=== PATIENT | female | born 1950 | race Caucasian/White ===

== ENCOUNTER → 2018-04-17 08:16 | Outpatient (CLI) | payer MEDICARE, OTHER, SELFPAY ==
[2018-04-17 08:25] LABS: Mucous, Urine 0 SEEN /hpf (<or=2+); Red Blood Cells-Urine 0 SEEN /hpf (0-5)
[2018-04-17 10:27] LABS: Absolute Lymphocyte Count 1.97 X10^3/ul (0.83-4.51); Basophil# 0.02 X10^3/uL; Basophil% 0.4 % (0-1); Eosinophil# 0.11 X10^3/uL; Eosinophils% 2.4 % (0-5); Hematocrit 40.9 % (37-47); Hemoglobin 14.3 g/dl (12.0-15.0); Lymphocyte # 1.97 X10^3/ul (4.0); Lymphocyte % 43.7 % (19-41); Mean Corpuscular Hgb 31.8 pg (27.0-32.0); Mean Corpuscular Volume 91.1 fL (81-99); Mean Platelet Vol. 11.3 fl (6.2-12.0); Monocyte# 0.38 X10^3/uL; Monocyte% 8.4 % (0-10); Neutrophil # 2.02 X10^3/uL (2.7-7.7); Neutrophil % 44.9 % (47-70); Platelet Count 269 K/mm3 (150-450); RBC Distribution Width CV 12.8 % (11.6-14.6); RBC Distribution Width SD 41.8 fl (35.1-43.9); Red Blood Count 4.49 M/mm3 (4.2-5.4); White Blood Count 4.5 K/mm3 (4.4-11.0)
[2018-04-17 10:28] LABS: Color, Urine Yellow (Yellow); Glucose, Dipstick Normal (Normal); Ketone-Dipstick Negative (Negative); Leukocyte Esterase-Dipstick Negative /ul (Negative); Nitrite-Dipstick Negative (Negative); Occult Blood-Urine 25 /ul (Negative); POSITIVE COUNT NO; POSITIVE DIFFERENTIAL NO; Protein-Dipstick Negative (Negative); Urine Bilirubin Dipstick Negative (Negative); Urine Clarity Clear (Clear); Urine Urobilinogen Normal (Normal)
[2018-04-17 10:29] LABS: POSITIVE MORPHOLOGY NO
[2018-04-17 10:37] LABS: Bacteria 3+ /hpf (None Seen); Squamous Epithelial Cells - UA 10-25 SEEN /hpf (5-10); White Blood Cells 10-25 SEEN /hpf (0-5)
[2018-04-17 10:44] LABS: ALB/GLOB Ratio 0.9 RATIO (0.9-2.4); AST(SGOT) 25 U/L (15-37); Alanine Aminotransfer ALT/SGPT 46 U/L (13-56); Albumin, Serum 3.7 g/dL (3.2-5.0); Alkaline Phosphatase 80 U/L (45-117); Anion Gap 12 (5-15); BUN 11 mg/dL (7-18); BUN/Creat Ratio 12.6 RATIO (10-20); Calcium,Total 8.4 mg/dL (8.5-10.1); Chloride 108 mmol/L (98-107); Cholesterol 266 mg/dL (200); Creatinine, Serum 0.87 mg/dL (0.55-1.02); EST Glomerular Filtration Rate 68 mL/min (>60); Est Glom Filt Rate - Afr Amer 83 mL/min (>60); Globulin 3.9 g/dL (2.2-4.2); Glucose 87 mg/dL (74-106); High Density Lipoprotein 43 mg/dL; Phosphorus 2.7 mg/dL (2.5-4.9); Potassium 3.7 mmol/L (3.5-5.1); Protein, Total 7.6 g/dL (6.4-8.2); Sodium Level 140 mmol/L (136-145); T4 Free Direct 0.98 ng/dL (0.76-1.46); Thyroid Stim Hormone (TSH) 1.88 uIU/mL (0.358-3.74); Triglycerides 269 mg/dL; Very Low Density Lipoprotein 54 mg/dL (5-40)
== END ==
PROVIDERS: Family Provider Family Medicine; PCP Family Medicine; Visit Provider Family Medicine
DX: E78.5 Hyperlipidemia, unspecified (principal); E55.9 Vitamin D deficiency, unspecified; M81.0 Age-related osteoporosis without current pathological fracture; R94.4 Abnormal results of kidney function studies; E01.0 Iodine-deficiency related diffuse (endemic) goiter
CPT/HCPCS: 36415; 80053; 80061; 81001; 82306; 84100; 84439; 84443; 85025

== ENCOUNTER → 2018-04-30 08:47 | Outpatient (CLI) | payer MEDICARE, OTHER, SELFPAY ==
--- NOTE | 2018-04-30 08:53 | US_ITS ---
STUDY: THYROID ULTRASOUND REASON FOR EXAM: Female, 67 years old. Thyromegaly TECHNIQUE: Ultrasound evaluation of the thyroid was performed with real-time and static wright-scale imaging. COMPARISON: None. FINDINGS: RIGHT LOBE: The right lobe of the thyroid gland measures 3.8 x 1.3 x 1.1 cm. There is a homogeneous echotexture. There are no demonstrated solid, cystic or complex lesions. LEFT LOBE: The left lobe of the thyroid gland measures 3.7 x 1.1 x 1.0 cm. There is a homogeneous echotexture. There are no demonstrated solid or complex lesions. There is a 2 mm mid upper left thyroid lobe cyst. ISTHMUS: The isthmus measures 2 mm . A normal size left lymph node identified measuring up to 6 mm in size. US/Thyroid IMPRESSION: No thyroid gland enlargement. Small 2 mm thyroid cyst left lobe. Electronically Signed: Duc Carrillo DO at 22:36 EDT , Service support ,
== END ==
PROVIDERS: Family Provider Family Medicine; PCP Family Medicine; Visit Provider Family Medicine
DX: M81.0 Age-related osteoporosis without current pathological fracture (principal); E01.0 Iodine-deficiency related diffuse (endemic) goiter
CPT/HCPCS: 76536; 77080

== ENCOUNTER → 2018-07-22 07:03 | Outpatient (CLI) | payer MEDICARE, OTHER, SELFPAY ==
[2018-07-22 10:35] LABS: Vitamin D,25 Hydroxy 59.4 ng/mL (29.95-100.01)
[2018-07-22 10:36] LABS: ALB/GLOB Ratio 0.9 RATIO (0.9-2.4); AST(SGOT) 17 U/L (15-37); Alanine Aminotransfer ALT/SGPT 43 U/L (13-56); Albumin, Serum 3.7 g/dL (3.2-5.0); Alkaline Phosphatase 88 U/L (45-117); Anion Gap 10 (5-15); BUN 13 mg/dL (7-18); BUN/Creat Ratio 12.5 RATIO (10-20); Calcium,Total 8.8 mg/dL (8.5-10.1); Chloride 105 mmol/L (98-107); Cholesterol 302 mg/dL (200); Creatinine, Serum 1.04 mg/dL (0.55-1.02); EST Glomerular Filtration Rate 56 mL/min (>60); Est Glom Filt Rate - Afr Amer 67 mL/min (>60); Glucose 105 mg/dL (74-106); High Density Lipoprotein 46 mg/dL; Protein, Total 7.7 g/dL (6.4-8.2); Sodium Level 140 mmol/L (136-145); Triglycerides 244 mg/dL; Very Low Density Lipoprotein 49 mg/dL (5-40)
== END ==
PROVIDERS: Family Provider Family Medicine; PCP Family Medicine; Referring Provider Family Medicine; Visit Provider Family Medicine
DX: E78.5 Hyperlipidemia, unspecified (principal); E55.9 Vitamin D deficiency, unspecified
CPT/HCPCS: 36415; 80053; 80061; 82306

== ENCOUNTER → 2020-03-02 12:48 | Outpatient (CLI) | payer MEDICARE, OTHER, SELFPAY ==
[2020-03-03 07:23] LABS: SARS-COV-2 TOTAL ABS Nonreactive (Nonreactive)
== END ==
PROVIDERS: PCP Family Medicine; Referring Provider Family Medicine; Visit Provider Family Medicine
DX: Z20.828 Contact with and (suspected) exposure to other viral communicable diseases (principal)
CPT/HCPCS: 86769; G2023

== ENCOUNTER 2023-09-11 12:30 | Outpatient (RCR) | payer MEDICARE, OTHER, SELFPAY ==
--- NOTE | 2023-07-08 12:53 | HP.PTEVAL_ITS ---
Patient's Visit Information Visit Information Visit Information: JUSTINA PARR is a 72 year old F referred to Physical Therapy by Dr. Ludwin Sebastian DO with a diagnosis of imbalance. Date of Evaluation: 07/08/23 Physical Therapist: Ameya Pride, DENISET, OCS, CSCS Visit Plan Frequency: 2x /Week Duration: 4-6 Weeks Plan: 2x/week for 4-6 weeks for... 1,. ensure stretching gastroc at home(given to her at ) 2. teach weight shifting, VOR balance and LE strength program to do at home or in gym and work to safety and I. Subjective Subjective: Balance issues. Has fallen about a month ago and worked with sales trainer. Went home and fell going in front door. She can spin or feel lightheaded for a short time. This may have started about a year ago. Has had eye appointments and changed glasses. No spinning with lying but gets it standing from bending. driving is fine. 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 Sleep is OK Not employed. Spends day chasing aiyana. No regular exercise. Fearful of walking too much. Gets wooshing feeling after being up for two hours. Better after nap. Objective Objective: Walks into and out of PT I without obvious gait deficits, slow and lacks weight shift. Trasnfers without UE I. Steps reciprocally with one rail. coordination LE tapping WNL reciprocally. LE sensation WNL to gross light touch. reflexes 2/3 patella and achilles Strength hips 4-, knees 4, ankles 4/5. - B hallpike yuliana , - roll test. Oculomotor: no nystagmus with gaze or head shake - skew eye deviation - ocular tilt - head thrust pursuit and saccades are normal and asymptomatic MSQ is asymptomatic today VOr is normal albeit slow and harder to balance in standing but asymptomatic. weight shifting FW and lateral is hesitant. Balance/Special Test Scores Functional Gait Assessment Score: 23 % Disability: 23.3400 CATSIB Score (Max score 120 seconds): 100 Lower Extremity Functional Score: 29 Goals Goal 1:: FGA Goal Time Frame: 4-6 Weeks Goal 2:: Pt feel balance and activity 50% imrpoved Goal Time Frame: 4-6 Weeks Goal 3:: romberg foam ec 20+ seconds. Goal Time Frame: 4-6 Weeks Goal 4:: I appropriate HEP to limit future problems(weight shifts, gastrco stretch, LE strength, vestibular ex) Rehabilitation Potential Physical Therapy Diagnosis: balance deficits limiting home function due to fear and safety Rehabilitation Potential: Good Anticipated Interventions Patient/Client Instruction: Educate patient on: Condition and Plan of Care For the Purpose of:: To improve muscle performance and motor function, To increase tolerance to activity/condition/position and To improve gait and locomotor functions Therapeutic Exercise to Include: Strength training, Balance training and Flexibilty training For the Purpose of:: To increase tolerance to activity/condition/position and To improve ability of physical actions for home/community/work/leisure Text: Thank you for the opportunity to evaluate your patient. For Medicare and Medicare HMO plans, please review the plan of care and approve it. It will need to be FAXED BACK to us at [phone] for Medicare purposes. For Medicare only, by signing this I certify the plan of care. Please let me know if there are questions or concerns regarding this plan of care. Physician Signature: Date:
--- NOTE | 2023-08-28 13:47 | HP.PTREVAL_ITS ---
Re-Evaluation Intro: Dr. Ludwin Sebastian, DO, It has been my pleasure to treat JUSTINA PARR over the last 14 visits for imbalance. Please see the progress note below for an update on the physical therapy plan of care! Subjective Subjective: Feels like she is getting to the point where a few more visits and she can be on her own. No pain. Balance is pretty good. No falls. No f/u scheduled. Activities are nomral at home. Objective Objective/Function: Walking I and transferring I on her own without difficulty. Good balance. feels like she does not quite ready to be on her won adn would like a couple more to wean to I. Still working toward last goal of complete I with gym, good prognosis Plan Plan Plan: 1x/week x 2-4 as needed to wean to I with gym program and answer questions, she will work out another time a week on her own and shoot for 2- 3x/week snf after d/c. D/c will occur when she is ready and I in the next 2-4 weeks. Balance/Gait/Functional tests Balance/Special Test Scores Functional Gait Assessment Score: 28 % Disability: 6.6700 CATSIB Score (Max score 120 seconds): 120 Lower Extremity Functional Score: 57 Goals Goals Goal 1:: FGA 26/30 Goal Time Frame: 4-6 Weeks Goal Progress: Goal Met Goal 2:: Pt feel balance and activity 50% imrpoved Goal Time Frame: 4-6 Weeks Goal Progress: Goal Met Goal 3:: romberg foam ec 20+ seconds. Goal Time Frame: 4-6 Weeks Goal Progress: Goal Met Goal 4:: I appropriate HEP to limit future problems(weight shifts, gastrco stretch, LE strength, vestibular ex) Goal Time Frame: 2-4 Weeks Goal Progress: still appropr Anticipated Interventions Anticipated Interventions Patient/Client Instruction: Educate patient on: Condition and Plan of Care For the Purpose of:: To improve muscle performance and motor function, To increase tolerance to activity/condition/position and To improve gait and locomotor functions Therapeutic Exercise to Include: Strength training, Balance training and Flexibilty training For the Purpose of:: To increase tolerance to activity/condition/position and To improve ability of physical actions for home/community/work/leisure Re-Evaluation Ending Re-evaluation ending: Please do not hesitate to contact me at [phone] by phone or if you have questions or concerns regarding this new plan of care! Sincerely, Ameya Pride, DPT, OCS, CSCS
--- NOTE | 2023-11-01 14:17 | HP.PTDCSUM ---
Discharge Summary D/C summary: It has been my pleasure to treat JUSTINA PARR referred by Dr. Ludwin Sebastian DO, with the diagnosis of imbalance for a total of 16 visit(s). Discharge Date: Please see the following information for a summary of their discharge status. Subjective Subjective: today is my last appt Overall Improvement % Improvement: 90 Objective Objective/Function: Went through ther ex log one final time with pt - having her set up equip weight and settings. Did well. Some min cues but should become more familiar as she continues. Cont to voice using 2 hands to adjust equip settings. Goals Goal 1:: FGA Goal Progress: Goal Met Goal 2:: Pt feel balance and activity 50% imrpoved Goal Progress: Goal Met Goal 3:: romberg foam ec 20+ seconds. Goal Progress: Goal Met Goal 4:: I appropriate HEP to limit future problems(weight shifts, gastrco stretch, LE strength, vestibular ex) Goal Progress: still appropr Plan Plan: Pt is D/c from PT at this time to her Indep[employer] program. D/C Information d/c sentence: If there are questions or concerns regarding this patient's physical therapy, please feel free to call me at [phone]. Thank you for the referral of this patient. Sincerely, Ameya Pride, DPT, OCS, CSCS Balance/Gait/Functional tests Balance/Special Test Scores Functional Gait Assessment Score: 28 % Disability: 6.6700 CATSIB Score (Max score 120 seconds): 120 Lower Extremity Functional Score: 57 Improvement % Improvement: 90
== END 2023-09-11 19:00 | disposition home or self-care (01) ==
LOC: PT 12:30
PROVIDERS: PCP Family Medicine; Referring Provider Family Medicine; Visit Provider Family Medicine
DX: R26.89 Other abnormalities of gait and mobility (principal)
CPT/HCPCS: 97110; 97162; 97164; 97530

== ENCOUNTER 2024-11-14 12:36 | Emergency (ER) | payer MEDICARE, SELFPAY ==
[2024-11-14 12:38] VITALS: BP 144/68; PULSE 85; RESP 18; TEMP 36.4; O2SAT 99; BMI 26.9
--- NOTE | 2024-11-14 12:53 | CT_ITS ---
PROCEDURE: SPINE CERVICAL WITHOUT CONTRAS REASON FOR EXAM: Falls TECHNIQUE: Cervical spine CT without contrast. COMPARISON: None. FINDINGS: Alignment: Mild straightening of the normal cervical lordosis Vertebrae: Compression deformities of the superior endplates of C7 and T1. Mild spondylosis. No spondylolisthesis. Soft Tissues: No large prevertebral hematoma CT/Spine Cervical without Contras IMPRESSION: Superior endplate compression deformities of C7 and T1. Mild degenerative reeves ges throughout the cervical spine One or more dose reduction techniques were used (e.g., Automated exposure contr ol, adjustment of the mA and/or kV according to patient size, use of iterative reconstruction technique). Reading Location: [facility]
--- NOTE | 2024-11-14 12:53 | CT_ITS ---
EXAM: BRAIN/HEAD WITHOUT CONTRAST CLINICAL HISTORY: Falls COMPARISON: None. TECHNIQUE: Noncontrast images of the head with multiplanar reconstructions. Dose reduction techniques were used including intermediate exposure control (AEC),iterative reconstruction technique, and/or mA and/or KV dose adjustments based on patient's size. FINDINGS: CT HEAD FINDINGS: No acute intracranial hemorrhage, mass, mass effect, midline shift or pathologic extra-axial fluid collection. Nonspecific periventricular white matter changes are noted No hydrocephalus. Age- appropriate cerebral volume and white matter. Visualized paranasal sinuses and mastoid air cells are clear. The calvarium is grossly intact. CT/Brain/Head without Contrast IMPRESSION: 1. No CT evidence of acute intracranial pathology. 2. Age-appropriate volume loss and remote small vessel ischemic changes Reading Location: [facility]
--- NOTE | 2024-11-14 12:53 | EKG12_ITS ---
Test Reason : FALL Blood Pressure : */* mmHG Vent. Rate : 91 BPM Atrial Rate : 91 BPM P-R Int : 162 ms QRS Dur : 64 ms QT Int : 372 ms P-R-T Axes : * 79 84 degrees QTcB Int : 457 ms Normal sinus rhythm BASELINE ARTIFACT PROBABLY NORMAL Confirmed by Adam Tran ([id number]), medical editor JEMMA ROBERTO ([id number]) on 11/16/2024 10:14:44 AM Referred By: Confirmed By: Adam Tran
--- NOTE | 2024-11-14 13:00 | EDS_ITS ---
HPI <SKIP Auguste - Last Filed: 11/14/24 15:30> HPI - Fall History of Present Illness Chief Complaint: Fall Narrative Narrative: 74-year-old female with no known past medical history states she is been following every couple days for the last 3 weeks. She stood up from her living room chair 3 days ago and fell hitting her head on the ground and has an abrasion around her left eye. She does not think there was loss of conscious ness. She has had headaches since then without vomiting or visual changes or focal motor or sensory changes. She really was not worried about it but she told her friend on the telephone that she been falling and they called the paramedics today. Patient does admit to having a drink before bed to help her sleep. PFSH <SKPI Auguste - Last Filed: 11/14/24 15:30> PFSH Medical History (Updated 11/14/24 @ 14:40 by SKIP Auguste) Osteopenia IBS (irritable bowel syndrome) Cataracts, bilateral Bone fracture Home Medications ?Medication ?Instructions ?Recorded ?Last Taken ?Type NK 11/14/24 Unknown History Allergy/AdvReac Type Severity Reaction Status Date / Time rosuvastatin calcium (From AdvReac Other Verified 11/14/24 12:38 Crestor) Family History (Updated 09/24/19 @ 16:18 by Elise Potter) Father Colon cancer Myocardial infarction Melanoma Mother Cancer Surgical History History of tubal ligation Social History (Updated 09/24/19 @ 16:19 by Elise Potter) Smoking Status: Never smoker alcohol intake: current alcohol intake frequency: a few times a week substance use type: does not use frequency: 1-2 times per week ROS <SKIP Auguste - Last Filed: 11/14/24 15:30> ROS ED ROS Narrative Constitutional: Negative for fever, chills, malaise. Eyes: Negative for visual change. CVS: Negative for chest pain, syncope. Respiratory: Negative for shortness of breath. GI: Negative for abdominal pain, nausea, vomiting. Neuro: Positive for headache EXAM <SKIP Auguste - Last Filed: 11/14/24 15:30> Physical Exam Narrative Exam Narrative: CONST: Patient sitting in no acute distress. EYES: Normal inspection. PERRL, EOMI. ENT: Small abrasion left periorbital region, no raccoon eyes or zhang sign, no hemotympanum, no nasal septal hematoma, no CSF otorrhea or rhinorrhea. NECK: Normal inspection. No midline spinal tenderness, no step off or crepitus. RESP: No respiratory distress, CTAB. Chest wall nontender CVS: Regular rate and rhythm, no murmur, no gallop. ABD: Soft and nontender, no guarding or rebound, nondistended. SKIN: Color normal, no rash, warm, dry, intact. EXTREMITIES: Normal appearance, no bony tenderness, 2+ radial and DP pulses. NEURO: Alert and answering questions appropriately. PSYCH: Normal affect. Const Vital Signs: 11/14/24 12:38 11/14/24 12:45 Temperature 97.6 F L Temperature Source Oral Pulse Rate 85 Respiratory Rate 18 Respiratory Effort Normal Non-Labored Respiratory Depth Normal Respiratory Pattern Normal Blood Pressure 144/68 H Blood Pressure Mean 93 Pulse Ox 99 Oxygen Delivery Method Room Air Room Air <Valente Anne MD - Last Filed: 11/14/24 15:53> Physical Exam Const Vital Signs: 11/14/24 12:38 11/14/24 12:45 Temperature 97.6 F L Temperature Source Oral Pulse Rate 85 Respiratory Rate 18 Respiratory Effort Normal Non-Labored Respiratory Depth Normal Respiratory Pattern Normal Blood Pressure 144/68 H Blood Pressure Mean 93 Pulse Ox 99 Oxygen Delivery Method Room Air Room Air [facility] <SKIP Auguste - Last Filed: 11/14/24 15:30> [facility] Narrative Medical decision making narrative: Patient reports recent multiple falls. She fell 3 days ago and has a small left facial abrasion and her friend called EMS. Patient is awake and alert in no distress. Vital signs are stable. There is a small abrasion to the left of her eye with no bony tenderness or signs of basilar skull fracture. There is no cervical tenderness. She is neurovascularly intact and her exam is otherwise negative for injuries. I recommended screening to rule out any medical cause of her falls and she is agreeable. CBC and BMP are only notable for mild hypokalemia of 3.2. She was given p.o. potassium. Urinalysis is negative. CT brain negative; CT cervical spine shows superior endplate compression deformities of C7 and T1. She has no neck pain and I suspect these are chronic. Patient ambulated to the bathroom with the nurse who states she was somewhat off balance and holding onto the wall. I advised the patient to be admitted but she refused. She is alert and oriented and not clinically intoxicated and is capable of making this decision. I discussed this is AGAINST MEDICAL ADVICE that she could have fallen had permanent injury or disability or . Patient expressed understanding. I recommended she follow-up with her primary care doctor and she was discharged in stable condition. Lab Data Attestation: I reviewed the patient's lab results. Labs: Laboratory Results - last 24 hr 11/14/24 11/14/24 13:00 13:55 WBC 4.8 RBC 4.28 Hgb 14.7 Hct 42.2 MCV 98.6 MCH 34.3 H MCHC 34.8 RDW Std Deviation 46.2 H RDW Coeff of Brigitte 12.9 Plt Count 200 MPV 10.8 Immature Gran % (Auto) 0.400 Neut % (Auto) 46.9 L Lymph % (Auto) 42.3 H [place] % (Auto) 8.5 Eos % (Auto) 1.3 Baso % (Auto) 0.6 Absolute Neuts (auto) 2.3 Absolute Lymphs (auto) 2.03 Nucleated RBC % 0 Sodium 140 Potassium 3.2 L Chloride 104 Carbon Dioxide 21.0 Anion Gap 14 BUN 14 Creatinine 0.84 Estim Creat Clear Calc 51.07 Est GFR (MDRD) Af Amer 85 Est GFR (MDRD) Non-Af 70 BUN/Creatinine Ratio 16.7 Glucose 88 Calcium 9.1 Urine Color Yellow Urine Clarity Clear Urine pH 6.0 Ur Specific [place] 1.010 Urine Protein 15 H Urine Glucose (UA) Normal Urine Ketones 50 H Urine Occult Blood 10 H Urine Nitrite Negative Urine Bilirubin Negative Urine Urobilinogen Normal Ur Leukocyte Esterase Negative Urine RBC 0-5 SEEN Urine WBC 0-5 SEEN Ur Squamous Epith Cells 0-5 SEEN Urine Bacteria 0 SEEN Urine Mucus 0 SEEN Radiography Diagnostic Testing: Clinical Impression(s) from Imaging Studies Brain CT 11/14/24 12:53 IMPRESSION: 1. No CT evidence of acute intracranial pathology. 2. Age-appropriate volume loss and remote small vessel ischemic changes Reading Location: [facility] Cervical Spine CT 11/14/24 12:53 IMPRESSION: Superior endplate compression deformities of C7 and T1. Mild degenerative changes throughout the cervical spine One or more dose reduction techniques were used (e.g., Automated exposure control, adjustment of the mA and/or kV according to patient size, use of iterative reconstruction technique). Reading Location: [facility] EKG Initial EKG: Attestation: I personally reviewed and interpreted this EKG as follows: Interpretation: Sinus Rhythm and No Acute Injury Pattern Comments: Normal sinus rhythm at [address] changes, no STEMI <Valente Anne MD - Last Filed: 11/14/24 15:53> [facility] Lab Data Labs: Laboratory Results - last 24 hr 11/14/24 11/14/24 13:00 13:55 WBC 4.8 RBC 4.28 Hgb 14.7 Hct 42.2 MCV 98.6 MCH 34.3 H MCHC 34.8 RDW Std Deviation 46.2 H RDW Coeff of Brigitte 12.9 Plt Count 200 MPV 10.8 Immature Gran % (Auto) 0.400 Neut % (Auto) 46.9 L Lymph % (Auto) 42.3 H [place] % (Auto) 8.5 Eos % (Auto) 1.3 Baso % (Auto) 0.6 Absolute Neuts (auto) 2.3 Absolute Lymphs (auto) 2.03 Nucleated RBC % 0 Sodium 140 Potassium 3.2 L Chloride 104 Carbon Dioxide 21.0 Anion Gap 14 BUN 14 Creatinine 0.84 Estim Creat Clear Calc 51.07 Est GFR (MDRD) Af Amer 85 Est GFR (MDRD) Non-Af 70 BUN/Creatinine Ratio 16.7 Glucose 88 Calcium 9.1 Urine Color Yellow Urine Clarity Clear Urine pH 6.0 Ur Specific [place] 1.010 Urine Protein 15 H Urine Glucose (UA) Normal Urine Ketones 50 H Urine Occult Blood 10 H Urine Nitrite Negative Urine Bilirubin Negative Urine Urobilinogen Normal Ur Leukocyte Esterase Negative Urine RBC 0-5 SEEN Urine WBC 0-5 SEEN Ur Squamous Epith Cells 0-5 SEEN Urine Bacteria 0 SEEN Urine Mucus 0 SEEN Radiography Diagnostic Testing: Clinical Impression(s) from Imaging Studies Brain CT 11/14/24 12:53 IMPRESSION: 1. No CT evidence of acute intracranial pathology. 2. Age-appropriate volume loss and remote small vessel ischemic changes Reading Location: [facility] Cervical Spine CT 11/14/24 12:53 IMPRESSION: Superior endplate compression deformities of C7 and T1. Mild degenerative changes throughout the cervical spine One or more dose reduction techniques were used (e.g., Automated exposure control, adjustment of the mA and/or kV according to patient size, use of iterative reconstruction technique). Reading Location: [id number] Narrative: Dr. Anne: I have personally performed a face to face assessment of the patient and have reviewed the SADA Note. I performed a substantive portion of the visit including all aspects of the following. My wu findings include: History is 74-year-old female, lives alone, presents via EMS with frequent fall s. She states that she has a cane at home which she is supposed to be using but sometimes gets up, and states that she runs around like she was 18 years old, and ends up falling. She told her neighbor that she has been falling frequently, who in turn called EMS. She Darcy few days ago and sustained an abrasion to her left face around her at the corner of her eye. She denies any neck pain, no head pain, does not take blood thinners. Exam is GCS 15. ABCs intact. Neck soft and supple without meningismus. No vertebral point tenderness or bony step-off noted. Cardiovascular examination reveals a regular rate and rhythm. Lungs clear to auscultation bilaterally. Abdomen soft and nontender without guarding or rebound. Positive bowel sounds. Neurological examination is nonfocal and nonlateralizing. Medical Decision Making: Check CT brain and CT C-spine. Although she has compression fractures of C7 and T1, she is not having pain in that area. Check EKG. Check labs. Patient was able to ambulate in the ED. Observation/admission was discussed with her but she declines. They feel she has the capacity to make this decision as she is not clinically intoxicated here. She will follow-up with her primary care provider. Return instructions to the emergency department were reviewed. Disposition is discharged home in stable condition. Other additions or changes: [None] Discharge Plan Triage Chief Complaint: Fall Other Complaint: Head Injury ED Midlevel Provider: Mariah Little ED Provider: Valente Anne Dx/Rx/DC Orders Clinical Impression: Multiple falls, Closed head injury, Abrasion of face Instructions: ED Fall with Uncertain Cause, ED Head Injury (Adult) Prescriptions: No Action NK Primary Care Provider: Ludwin Sebastian Referrals: Ludwin Sebastian, DO [Primary Care Provider] - Activity Restrictions/Additional Instructions: I recommended you be admitted to the hospital since you are unsteady and having multiple falls but you refused. Risks are that you could fall and have an injury such as a head injury causing bleeding or break bones and have permanent disability or . I recommend you follow-up with your primary care doctor. Print Language: Malaysian Disposition Disposition: Home, Self Care Discharge Date/Time: 11/14/24 15:48
[2024-11-14 13:20] LABS: Absolute Lymphocyte Count 2.03 X10^3/uL (0.83-4.51); Absolute Neutrophil Count 2.3 X10^3/uL (2.0-7.7); Basophil# 0.03 X10^3/uL; Basophil% 0.6 % (0-1); Eosinophil# 0.06 X10^3/uL; Eosinophils% 1.3 % (0-5); Hematocrit 42.2 % (37-47); Hemoglobin 14.7 g/dL (12.0-15.0); Lymphocyte # 2.03 X10^3/ul (0.83-4.51); Lymphocyte % 42.3 % (19-41); Mean Corp Hgb Conc 34.8 g/dL (32-36); Mean Corpuscular Hgb 34.3 pg (27.0-32.0); Mean Corpuscular Volume 98.6 fL (81-99); Mean Platelet Vol. 10.8 fl (6.2-12.0); Monocyte# 0.41 X10^3/uL; Monocyte% 8.5 % (0-10); NRBC Flagged by Analyzer 0 % (0-5); Neutrophil # 2.25 X10^3/uL (2.7-7.7); Neutrophil % 46.9 % (47-70); Platelet Count 200 K/mm3 (150-450); RBC Distribution Width CV 12.9 % (11.6-14.6); RBC Distribution Width SD 46.2 fl (35.1-43.9); Red Blood Count 4.28 M/mm3 (4.2-5.4); White Blood Count 4.8 K/mm3 (4.4-11.0)
[2024-11-14 13:30] LABS: Anion Gap 14 (5-15); BUN 14 mg/dL (7-18); BUN/Creat Ratio 16.7 RATIO (10-20); Calcium,Total 9.1 mg/dL (8.5-10.1); Chloride 104 mmol/L (98-107); Creatinine, Serum 0.84 mg/dL (0.55-1.02); EST Glomerular Filtration Rate 70 mL/min (>60); Est Glom Filt Rate - Afr Amer 85 mL/min (>60); Estimated Creatinine Clearance 51.07 ml/min; Glucose 88 mg/dL (74-106); Potassium 3.2 mmol/L (3.5-5.1); Sodium Level 140 mmol/L (136-145)
[2024-11-14] MEDS: Potassium Chloride Oral Tablet 20 MEQ 40 MEQ PO (13:52)
[2024-11-14 14:03] LABS: Bacteria 0 SEEN /hpf (None Seen); Mucous, Urine 0 SEEN /hpf (<or=2+)
[2024-11-14 14:06] LABS: Color, Urine Yellow (Yellow); Glucose, Dipstick Normal (Normal); Ketone-Dipstick 50 mg/dl (Negative); Leukocyte Esterase-Dipstick Negative /ul (Negative); Nitrite-Dipstick Negative (Negative); Occult Blood-Urine 10 /ul (Negative); Protein-Dipstick 15 mg/dl (Negative); Urine Bilirubin Dipstick Negative (Negative); Urine Clarity Clear (Clear); Urine Urobilinogen Normal (Normal)
[2024-11-14 14:31] LABS: Red Blood Cells-Urine 0-5 SEEN /hpf (0-5); Squamous Epithelial Cells - UA 0-5 SEEN /hpf (5-10); White Blood Cells 0-5 SEEN /hpf (0-5)
--- NOTE | 2024-11-14 15:10 | CM.ED ---
Social Work: Date of referral: 11/14/2024 Reason for referral: Resources/Support/Discharge Planning Referred by: Social Work Identification perinatal social worker met with patient due to concerns of recent increase of falls, and possible substance abuse. Patient provided consent for social work visit. Patient reported she has been getting migraine headaches lately which patient described as new and unusual and has been taking OTC meds to treat. Patient reported she has increased falls with the headaches. When asked of patient has discussed this with her PCP (Dr. Ludwin Sebastian), patient admitted that she has not. perinatal social worker encouraged patient to reach out to her doctor to discuss which patient stated she would do. Patient reported she's not interested in getting a lot of tests done. Patient has a standard cane she ambulates with at times when home. Patient stated she gets dizzy at times when standing and/or walking. perinatal social worker provided fall prevention education, encouraged patient to talk to her doctor about getting a script from her PCP for a rollator so patient can have something more sturdy to hold onto when ambulating and also something she can use to sit down when needed if feeling unsteady. Patient was wearing an ERS device that she got through [facility] that she has had for years and uses. perinatal social worker talked with patient about reaching out to provider to see if she can get one with a fall detection sensor and also to get a lock box on door in case EMS is ever dispatched and patient has experienced LOC so door isn't broken down. Patient stated she will ask about this. perinatal social worker asked patient about her drinking and patient stated she wasn't sure if she drank this morning or not. Patient stated she drinks 3-4 days a week and just has one alcoholic drink at night before bedtime. Patient denied drinking more than stated and denied any issues with substance abuse. perinatal social worker provided education about consuming alcoholic beverages and increased fall risk which patient verbalized she understood. Patient reported she has a strong friend group/support system. Patient admitted that she is not making the best choices for herself however also reported she has a right to decide for herself how she wants to live. No other needs/questions at this time. Oralia Newell, CERTIFIED ATHLETIC TRAINER, CHIEF ENGINEER [employer]
--- NOTE | 2024-11-17 14:08 | CM.ED ---
Social work Received call from Franklin with [facility] ([phone]) asking about patient's disposition from [facility]. Franklin was informed that patient left the ED on 11/14/24 and Franklin stated [facility] would follow up with patient this week. Malryn Daniels, BLOCK HANDLER, [employer]ACHINE [employer]ER
== END 2024-11-14 15:48 | disposition home or self-care (01) ==
PROVIDERS: Physician Assistant; Emergency Provider Emergency Medicine; PCP Family Medicine; Visit Provider Emergency Medicine
DX: S00.211A Abrasion of right eyelid and periocular area, initial encounter (principal); W19.XXXA Unspecified fall, initial encounter; R26.81 Unsteadiness on feet; E87.6 Hypokalemia; Z91.81 History of falling; Z53.29 Procedure and treatment not carried out because of patient's decision for other reasons
CPT/HCPCS: 70450; 72125; 80048; 81001; 85025; 93005; 99284; A4216